=== PATIENT | male | born 1960 | race Caucasian/White ===

== ENCOUNTER 2020-10-02 09:51 | Inpatient (IN) | payer MEDICARE, SELFPAY ==
[2020-10-02 10:00] VITALS: BMI 27.1
[2020-10-02 10:01] VITALS: BP 117/77; PULSE 88; RESP 18; TEMP 37.1; O2SAT 96
[2020-10-02 13:45] VITALS: BP 124/78; PULSE 88; RESP 18; TEMP 36.5; O2SAT 98
--- NOTE | 2020-10-02 16:33 | P.HP_ITS ---
Providers/Chief Complaint Admitting Physician: Mango Mora MD Chief Complaint: si HPI NPU History of Present Illness Lamberto Hoffmann is a 60 year old male who was transferred from the [facility] ED in [place], [place] with complaints of increase in hallucinations and disorganized behavior off of his medications for schizophrenia. He told the nurse last night, I am schizophrenic, depressed, I have neuropathy in my feet, and have dementia in my brain. I hear voices but that is alright. The pt states, the voices want to kill me. Pt informed nurse that he is borderline diabetic. pt compliant with all requests during assessment except allowing nurse to assess his feet, He giggled and said They stink . The patient says he has been hearing 3 voices for the past 14 years since energy tapped into my brain. He asked if this is ever happened to me. The 3 voices are called Gizmo, little Gizmo, and lopez inside the lopez. He says that they threatened to kill him. They do not command him to harm himself or others. He says he has been refusing to take medications that his sister has encouraged him to take, because he says, I hate her with all my guts. He does say he will take medications while in our facility. He denies depression as well as suicidal and homicidal ideation. He does have trouble sleeping at night. He said he used to use methamphetamine, cocaine, marijuana 30 years ago, but has not used since then. He denies alcohol use. He smokes 1 pack of cigarettes per day. The patient says he has been hospitalized 3 times before. He says his family doctor prescribes his medications but he cannot remember their names. He does not know how long he has not taken his medication for. No physical complaints. Review of Systems General: Reports: 10 or more systems reviewed and unremarkable except in HPI and below Meds NPU Home Medications Medication Instructions Recorded Confirmed Last Taken Type hydroxyzine HCl 25 mg PO QID PRN 10/02/20 10/02/20 1 Day Ago History ~10/01/20 lovastatin 20 mg PO DAILY 10/02/20 10/02/20 1 Day Ago History ~10/01/20 metformin 500 mg PO BIDWM 10/02/20 10/02/20 1 Day Ago History ~10/01/20 montelukast 10 mg PO DAILY 10/02/20 10/02/20 Unknown History risperidone 12 mg PO BEDTIME 10/02/20 10/02/20 Unknown History Allergies Allergy/AdvReac Type Severity Reaction Status Date / Time No Known Allergies Allergy Verified 10/02/20 10:16 PFS NPU PFSH: Medical History (Updated 10/02/20 @ 20:44 by Mango Mora MD) Diabetes Mental Status Exam MSE Comments: I met with the patient in the day room, and he was poorly groomed and dressed wearing hospital scrubs. He spoke in a loud gruff voice but was cooperative, interactive, and made a fair eye contact. He has psychomotor agitation. Speech is very loud and somewhat rapid, but interruptible. Alert, oriented to person, place, time, situation. Attention and concentration were intact. Able to spell the word WORLD correctly forwards and backwards. Memory is fair. Remembers 3/3 words immediately and 2/3 at 3 minutes. He knows the names of the past 5 presidents. Mood is reported to be really good. Affect is irritable, but he does not seem to actually be irritated. Thought process is concrete. Thought content, reports some paranoid delusions, no hallucinations, no current suicidal ideation, no homicidal ideation Insight and judgment appear to be fair Vitals/I&O/Wt Last Vital Signs Temp 97.7 F 10/02/20 20:12 Pulse 98 10/02/20 20:12 Resp 18 10/02/20 20:12 BP 144/89 10/02/20 20:12 Pulse Ox 95 10/02/20 20:12 Weight last 48 hrs Weight 83.461 kg A&P Assessment and plan (1) Paranoid schizophrenia, chronic condition with acute exacerbation: Status: Acute Additional A&P Information Lamberto Hoffmann is a 60 year old male who was transferred from the [facility] ED in [place], [place] with complaints of increase in hallucinations and disorganized behavior off of his medications for schizophrenia. He is willing to restart his medications. 1. Continue current medication. He is confirmed to be on a large dose of Risperdal, 12 mg daily, which is apparently what is required to help him stay in touch with reality. 2. Continue every 15 minute checks for safety. 3. Encourage individual, group and milieu therapies. 4. Encourage sober living treatment after discharge at the highest level of care to which he is willing to commit. Involuntary Hold Information 96 Hour Hold: 96 Hour Involuntary Admission: No Attestations NPU Medical Necessity Statement*: Psychiatric hospitalization is medically necessary to prevent access to lethal means, to help the patient stay organized and safe while recovering from psychosis, to reevaluate medication, and to coordinate a safe discharge. Patient will be in the hospital for over 2 midnights. Likely length of stay is 3 to 5 days. Coding Level of Care Code Acute [employer] for [place] Diagnoses Paranoid schizophrenia, chronic condition with acute exacerbation F20.0
[2020-10-02] MEDS: metformin 500 mg Tablet PO (17:26)
[2020-10-02] MEDS: risperiDONE 2 mg Tablet 12 MG PO (19:58)
[2020-10-02] MEDS: montelukast sodium 10 mg Tablet PO (19:58)
--- NOTE | 2020-10-02 20:02 | PC.NURSE ---
PM Assessment Heart and lung sounds are WNL, Pt denies pain, denies VH,Denies SI, pt states, I am schizophrenic, depressed, I have neuropathy in my feet, and have dementia in my brain. I hear voices but that is alright. The pt states, the voices want to kill me. Pt informed nurse that he is borderline diabetic. pt compliant with all requests during assessment except allowing nurse to assess his feet, He giggled and said They stink .
[2020-10-02 20:12] VITALS: BP 144/89; PULSE 98; RESP 18; TEMP 36.5; O2SAT 95
[2020-10-02 20:33] LABS: Glucose Point of Care 91 mg/dL (70-110)
[2020-10-02] MEDS: trazodone 50 mg Tablet PO (21:22)
[2020-10-03 06:00] VITALS: BP 107/79; PULSE 68; RESP 16; TEMP 36.4; O2SAT 95
[2020-10-03 06:34] LABS: Glucose Point of Care 94 mg/dL (70-110)
[2020-10-03] MEDS: atorvastatin 40 mg Tablet 20 MG PO (08:05)
[2020-10-03] MEDS: metformin 500 mg Tablet PO ×2 (08:05)
[2020-10-03] MEDS: montelukast sodium 10 mg Tablet PO (08:38)
--- NOTE | 2020-10-03 11:56 | P.DS_ITS ---
Diagnoses at Discharge Discharge Diagnosis (1) Paranoid schizophrenia, chronic condition with acute exacerbation: Status: Chronic Reason for Visit Reason for Visit: si Brief History: Lamberto Hoffmann is a 60 year old male who was transferred from the [facility] ED in [place], [place] with complaints of increase in hallucinations and disorganized behavior off of his medications for schizophrenia. He told the nurse last night, I am schizophrenic, depressed, I have neuropathy in my feet, and have dementia in my brain. I hear voices but that is alright. The pt states, the voices want to k ill me. Pt informed nurse that he is borderline diabetic. pt compliant with all requests during assessment except allowing nurse to assess his feet, He giggled and said They stink . The patient says he has been hearing 3 voices for the past 14 years since energy tapped into my brain. He asked if this is ever happened to me. The 3 voices are called Gizmo, little Gizmo, and lopez inside the lopez. He says that they threatened to kill him. They do not command him to harm himself or others. He says he has been refusing to take medications that his sister has encouraged him to take, because he says, I hate her with all my guts. He does say he will take medications while in our facility. He denies depression as well as suicidal and homicidal ideation. He does have trouble sleeping at night. He said he used to use methamphetamine, cocaine, marijuana 30 years ago, but has not used since then. He denies alcohol use. He smokes 1 pack of cigarettes per day. The patient says he has been hospitalized 3 times before. He says his family doctor prescribes his medications but he cannot remember their names. He does not know how long he has not taken his medication for. Hospital Course Hospital Course He was admitted to the neuropsychiatric unit for definitive treatment of these issues. On the unit he slowly acclimated to the individual, group and milieu therapies. His psychotic symptoms improved with the medication being restarted. He was receptive to treatment team recommendations and showed modest improvement and was able to contract for safety prior to discharge. During the hospitalization, patient had routine laboratory studies which were within normal limits except for few outliers. Additionally there was a general medical evaluation which was also within normal limits and revealed no new acute processes. Discharge Summary: At the time of discharge, psychosis and lethality were denied. Mood and anxiety were well managed. Patient endorsed a plan to avoid all drugs of abuse and follow-up with the aftercare recommendations of the treatment team. Patient was evaluated and deemed to be absent credible lethality, and had achieved the maximum benefit from an inpatient hospitalization, so was discharged. Involuntary Hold Information 96 Hour Hold: 96 Hour Involuntary Admission: No Mental Status Exam MSE Comments: The patient made good eye contact and was cooperative and open to the exam. No psychomotor agitation or retardation. Speech was had a regular rate and rhythm without pressure. Alert and oriented to person, place, time, and situation. Attention and concentration were intact to exam Memory was fairly good to exam. Mood is improved without depression and anxiety. Affect is brighter. Thought process: Logical and goal directed. No racing thoughts or flight of ideas. Thought content: Still has some auditory hallucinations, but these are at baseline for him. No visual hallucinations. There are no delusions noted. No suicidal or homicidal ideation. Has future-oriented goals. Insight and judgment are improved and adequate. Discharge Data Data Completed and Pending: Labs from last 24 hours 10/03/20 10/02/20 06:31 20:31 POC Glucose 94 91 Vitals: Last Vital Signs Temp 97.5 F L 10/03/20 06:00 Pulse 68 10/03/20 06:00 Resp 16 10/03/20 06:00 BP 107/79 10/03/20 06:00 Pulse Ox 95 10/03/20 06:00 Discharge Plan Discharge Patient Disposition: Home Condition: Stable Prescriptions: Continued metformin 500 mg tablet 500 mg PO BIDWM 30 Days Qty: 60 RF: 0 risperidone 3 mg Tablet 12 mg PO BEDTIME 30 Days Qty: 120 RF: 0 montelukast 10 mg tablet 10 mg PO DAILY 30 Days Qty: 30 RF: 0 hydroxyzine HCl 25 mg tablet 25 mg PO QID PRN (Reason: Anxiety) 30 Days Qty: 60 RF: 0 lovastatin 20 mg tablet 20 mg PO DAILY 30 Days Qty: 30 RF: 0 Discharge Orders: Discharge Order (Routine); Ordered 10/03/20 Ordered By: Mango Mora Discharge Diet: Usual diet Discharge Activity: Resume usual activity Patient Instructions: Opioid Safety Discharge Attestations NPU Time Spent in Discharge Care*: less than 30 min Specific Discharge Activities: Specific discharge activities: educating patient, discussing with case management manager/social workers/dc planners, d ocumenting/other paperwork and evaluating patient/reviewing data Status at Discharge: Cognitive status at discharge: cognitively intact , Behavioral status at discharge: cooperative , Functional status at discharge: independent ambulation Overall status at discharge: patient is back to baseline Coding Level of Care Code Acute Chg FW DC note Diagnoses Paranoid schizophrenia, chronic condition with acute exacerbation F20.0
[2020-10-03 12:27] VITALS: BP 107/79; PULSE 68; RESP 16; TEMP 36.4; O2SAT 95
[2020-10-03 14:00] VITALS: BP 107/79; PULSE 68; RESP 16; TEMP 36.4; O2SAT 95
== END 2020-10-03 14:40 | disposition home or self-care (01) | DRG 885 ==
PROVIDERS: Admitting Provider Psychiatry & Neurology Child & Adolescent Psychiatry; Visit Provider Psychiatry & Neurology Child & Adolescent Psychiatry
DX: F20.0 Paranoid schizophrenia (principal); F17.210 Nicotine dependence, cigarettes, uncomplicated; E11.9 Type 2 diabetes mellitus without complications; Z79.84 Long term (current) use of oral hypoglycemic drugs
CPT/HCPCS: 36416; 82962